=== PATIENT | female | born 1950 | race Caucasian/White ===

== ENCOUNTER → 2016-10-17 | Outpatient (CLI) | payer MEDICARE, BC, OTHER ==
--- NOTE | 2016-10-17 14:54 | CR ---
EXAMINATION: Right tibia and fibula HISTORY: Pain COMPARISON: None TECHNIQUE: 2 views FINDINGS/IMPRESSION: There is no acute osseous abnormality, dislocation, or fracture identified. Bon e mineralization and joint spaces appear preserved. Mild osteophyte formation is noted within the ri ght knee and in the right ankle.
== END ==
LOC: MW.CHFP 10:24
PROVIDERS: ATTEND Emergency Medicine
DX: M79.604 Pain in right leg (principal); M25.761 Osteophyte, right knee; M25.771 Osteophyte, right ankle; M79.89 Other specified soft tissue disorders
CPT/HCPCS: 73590-26-RT; 73590-RT; G0463

== ENCOUNTER → 2016-11-26 | Outpatient (CLI) | payer MEDICARE, BC, OTHER ==
--- NOTE | 2016-11-26 13:55 | CR ---
EXAMINATION: Right knee HISTORY: Pain COMPARISON: 10/17/2016 TECHNIQUE: 4 views FINDINGS/IMPRESSION: There is no acute osseous abnormality, effusion, dislocation, or fracture ident ified. There is moderate joint space narrowing within the patellofemoral compartment with osteophyte formation. Bone mineralization otherwise appears normal.
== END ==
LOC: MW.CHORTHO 10:01
PROVIDERS: ATTEND Orthopaedic Surgery
DX: M25.562 Pain in left knee (principal); M25.761 Osteophyte, right knee; M17.11 Unilateral primary osteoarthritis, right knee
CPT/HCPCS: 73564-26-RT; 73564-RT; 99203

== ENCOUNTER 2023-01-25 10:41 | Emergency (ER) | payer MEDICARE, BC, OTHER | END 2023-01-25 12:01 | disposition home or self-care (01) | LOC: MW.ED 10:41 | DX: R21 Rash and other nonspecific skin eruption (principal); I10 Essential (primary) hypertension; E66.9 Obesity, unspecified; Z68.30 Body mass index [BMI] 30.0-30.9, adult; Z79.899 Other long term (current) drug therapy; Z88.8 Allergy status to other drugs, medicaments and biological substances | CPT/HCPCS: 99283 ==

== ENCOUNTER 2023-03-07 07:03 | Day surgery (SDC) | payer MEDICARE, BC, OTHER ==
[~2023-03-07 07:03] MED LIST: Lactated Ringers 1,000 ML IV SCH
[2023-03-07] MEDS ORDERED: propofoL 50 ML ONE (07:34)
[2023-03-07] MEDS ORDERED: Lactated Ringers 1,000 ML IV SCH (08:45)
== END 2023-03-07 09:21 | disposition home or self-care (01) ==
LOC: MW.SDS 07:03
PROVIDERS: ATTEND Surgery
DX: K57.30 Diverticulosis of large intestine without perforation or abscess without bleeding (principal); K52.9 Noninfective gastroenteritis and colitis, unspecified; Z80.0 Family history of malignant neoplasm of digestive organs; Z87.19 Personal history of other diseases of the digestive system; Z88.1 Allergy status to other antibiotic agents; Z88.8 Allergy status to other drugs, medicaments and biological substances
CPT/HCPCS: 45378; J2704; J7120

== ENCOUNTER 2023-09-23 10:52 | Day surgery (SDC) | payer MEDICARE, BC, OTHER ==
[~2023-09-23 10:52] MED LIST changes: +Albuterol 0.083% 2.5 MG/3 ML Neb Soln NEB PRN; +HYDROmorphone 1 MG/ML Syringe IVPUSH PRN; -Lactated Ringers 1,000 ML IV SCH; +Metoclopramide 10 MG/2 ML SDV IVPUSH PRN; +Morphine 2 MG/ML SYRINGE IVPUSH PRN; +Naloxone 0.4 MG/ML SDV IVPUSH PRN; +Ondansetron 4 MG/2 ML SDV IVPUSH PRN; +Sodium Chloride 0.9% 10 ML Syringe FLUSH PRN; +Sodium Chloride 0.9% 2.5 ML Syringe FLUSH PRN; +Sodium Chloride 0.9% 20 ML SDV IV PRN; +ceFAZolin 2 GM in Sodium Chloride 0.9% 50 ML IV ONE; +droPERidol 5 MG/2 ML SDV IVPUSH PRN; +fentaNYL 50 MCG/ML SDV IVPUSH PRN
[2023-09-23] MEDS: Lactated Ringers 1,000 ML IV SCH (12:10)
[2023-09-23] MEDS ORDERED: Lidocaine 1% 20 ML MDV ONE (14:21)
[2023-09-23] MEDS ORDERED: Bupivacaine 0.5% 30 ML SDV ONE (14:21)
[2023-09-23] MEDS ORDERED: propofoL 50 ML ONE (14:29)
[2023-09-23] MEDS ORDERED: ceFAZolin 2 GM Vial ONE (14:45)
== END 2023-09-23 16:07 | disposition home or self-care (01) ==
LOC: MW.SDS 10:52
PROVIDERS: ATTEND Surgery
DX: D17.22 Benign lipomatous neoplasm of skin and subcutaneous tissue of left arm (principal); K59.00 Constipation, unspecified; K76.0 Fatty (change of) liver, not elsewhere classified; I10 Essential (primary) hypertension; K57.90 Diverticulosis of intestine, part unspecified, without perforation or abscess without bleeding; E03.8 Other specified hypothyroidism; Z79.899 Other long term (current) drug therapy; Z88.1 Allergy status to other antibiotic agents
CPT/HCPCS: 11604; J0665; J0690; J2704; J7120; 00400; 88304; 99100; J3490